=== PATIENT | female | born 1925 | race Caucasian/White ===

== ENCOUNTER 2017-09-16 10:16 | Emergency (ER) | payer MEDICARE ==
[~2017-09-16] VITALS: Ht 162.6 cm; Wt 63.5 kg
[~2017-09-16 10:16] MED LIST: ACYC800 PO; ALBU90OI; AMOX250 PO; CIPR500 PO; DOCU100 PO; HYDACE5 PO; METPRE4DP PO; OXYACE5T PO; PROACE100 PO; UKNOWN BP MED; Zithromax250 MG PO; [UNRECOGNIZED DRUG - REMARK]; [UNRECOGNIZED DRUG - REMARK]
[2017-09-16] MEDS ORDERED: ROSU5 PO (10:32)
[2017-09-16] MEDS ORDERED: LISI20 PO (10:32)
[2017-09-16 11:06] LABS: Source, Urine Voided
[2017-09-16 11:10] LABS: BASOPHILS ABSOLUTE AUTO 0.02 K/mm3 (0.00-0.23); BASOPHILS PERCENT AUTO 0 % (0-2); EOSINOPHILS ABSOLUTE AUTO 0.16 K/mm3 (0.00-0.68); EOSINOPHILS PERCENT AUTO 2 % (0-6); Hematocrit 46.5 % (33.0-51.0); Hemoglobin 15.1 g/dL (11.5-16.0); IMMATURE GRAN ABSOLUTE AUTO 0.02 K/mm3 (0.00-0.10); IMMATURE GRAN PERCENT AUTO 0 % (0-1); LYMPHOCYTES ABSOLUTE AUTO 0.83 K/mm3 (0.84-5.20); LYMPHOCYTES PERCENT AUTO 12 % (21-46); MONOCYTES ABSOLUTE AUTO 0.51 K/mm3 (0.16-1.47); MONOCYTES PERCENT AUTO 7 % (4-13); Mean Corpuscular HGB 30.8 pg (26.0-34.0); Mean Corpuscular HGB Conc 32.5 g/dL (31.5-36.5); Mean Corpuscular Volume 95 fL (80-100); Mean Platelet Volume 10.5 fL (9.1-12.4); NEUTROPHILS ABSOLUTE AUTO 5.59 K/mm3 (1.96-9.15); NEUTROPHILS PERCENT AUTO 78 % (41-73); Platelet Count 238 K/mm3 (150-400); RDW Coefficient Variation 12.9 % (11.7-14.2); RDW Standard Deviation 45.2 fL (35.1-46.3); White Blood Cell Count 7.13 K/mm3 (4.00-11.30)
[2017-09-16 11:16] LABS: Bilirubin, Urine Neg (Neg); Blood, Urine 2+ (Neg); Glucose Qualitative, Urine Neg (Neg); Ketones, Urine Neg (Neg); Leukocyte Esterase, Urine 2+ (Neg); Nitrite, Urine Neg (Neg); Protein, Urine 1+ (Neg); Urobilinogen, Urine 1+ (Normal)
[2017-09-16 11:29] LABS: Albumin, Blood 3.4 g/dL (3.4-5.0); Albumin/Globulin Ratio 0.9 (0.8-1.8); Bilirubin, Total 0.8 mg/dL (0.1-1.0); Bun/Creatinine Ratio 12.7 (12.0-20.0); Calcium, Blood 9.1 mg/dL (8.5-10.1); Creatinine, Blood 1.26 mg/dL (0.40-1.00); Globulin, Blood 3.8 g/dL (2.2-4.0); Potassium, Blood 3.9 mmol/L (3.5-5.5); Total Protein, Blood 7.2 g/dL (6.4-8.2)
[2017-09-16 12:00] LABS: Appearance, Urine Clear (Clear); Color, Urine Yellow (P-Yellow)
[2017-09-16 12:04] LABS: Hyaline Casts 0-2 /lpf (0-2); Renal Epithelial Rare /hpf (0-Rare)
[2017-09-16 12:05] LABS: Bacteria Few /hpf; Squamous Epithelial Cells Few /hpf (Few)
[2017-09-16] MEDS ORDERED: Cipro250 MG PO (13:21)
== END 2017-09-16 14:06 | disposition home or self-care (01) ==
LOC: ER 10:16
PROVIDERS: Emergency Medicine
DX: N39.0 Urinary tract infection, site not specified (principal); I10 Essential (primary) hypertension; I48.91 Unspecified atrial fibrillation; Z88.5 Allergy status to narcotic agent; Z79.899 Other long term (current) drug therapy; W19.XXXA Unspecified fall, initial encounter
CPT/HCPCS: 36415; 80053; 81001; 85025; 87086; 93005; 93010; 99283